=== PATIENT | female | born 1995 | race African-American/Black ===

== ENCOUNTER 2018-06-08 16:35 | Emergency (ER) | payer OTHER ==
[~2018-06-08] VITALS: Ht 160 cm; Wt 50.9 kg
[2018-06-08] MEDS ORDERED: BACTRIM DS 8001 TAB PO (19:25)
[2018-06-08] MEDS ORDERED: NORCO 325 MG-51 TAB PO (19:25)
[2018-06-08 19:50] VITALS: BP 126/84; PULSE 104; TEMP 99.5
== END 2018-06-08 19:50 | disposition home or self-care (01) ==
LOC: COL.ER 16:35
DX: L05.01 Pilonidal cyst with abscess (principal); F17.210 Nicotine dependence, cigarettes, uncomplicated

== ENCOUNTER 2018-06-24 17:27 | Emergency (ER) | payer OTHER ==
[~2018-06-24] VITALS: Ht 162.6 cm; Wt 50.9 kg
[~2018-06-24 17:27] MED LIST: BACTRIM DS 8001 TAB PO; NORCO 325 MG-51 TAB PO
[2018-06-24 20:00] VITALS: BP 107/64; PULSE 85; TEMP 97.7
== END 2018-06-24 20:00 | disposition home or self-care (01) ==
LOC: COL.ER 17:27
DX: J06.9 Acute upper respiratory infection, unspecified (principal); R53.81 Other malaise; R53.83 Other fatigue; F17.210 Nicotine dependence, cigarettes, uncomplicated

== ENCOUNTER 2019-01-30 17:21 | Emergency (ER) | payer OTHER ==
[~2019-01-30] VITALS: Ht 152.4 cm; Wt 50.9 kg
[2019-01-30 17:44] VITALS: BP 107/58; TEMP 98
[2019-01-30 18:35] VITALS: PULSE 75
== END 2019-01-30 17:52 | disposition home or self-care (01) ==
LOC: COL.ER 17:21
DX: Z32.01 Encounter for pregnancy test, result positive (principal)

== ENCOUNTER 2019-02-09 11:41 | Emergency (ER) | payer OTHER ==
[~2019-02-09] VITALS: Ht 162.6 cm; Wt 50.9 kg
[2019-02-09 11:43] VITALS: BP 97/64; TEMP 98
[2019-02-09] MEDS ORDERED: CEPHALEXIN500 M1 PO (12:17)
[2019-02-09 13:00] VITALS: PULSE 66
== END 2019-02-09 13:00 | disposition home or self-care (01) ==
LOC: COL.ER 11:41
DX: S63.281A Dislocation of proximal interphalangeal joint of left index finger, initial encounter (principal); S61.211A Laceration without foreign body of left index finger without damage to nail, initial encounter; Y04.8XXA Assault by other bodily force, initial encounter; Y92.009 Unspecified place in unspecified non-institutional (private) residence as the place of occurrence of the external cause; Y07.01 Husband, perpetrator of maltreatment and neglect

== ENCOUNTER 2022-03-19 15:32 | Emergency (ER) | payer OTHER ==
[~2022-03-19] VITALS: Ht 162.6 cm; Wt 59.1 kg
[~2022-03-19 15:32] MED LIST changes: +CEPHALEXIN500 M1 PO
[2022-03-19 15:44] VITALS: TEMP 98
[2022-03-19] MEDS ORDERED: DOXYCYCLINE HY100 MG PO (16:09)
[2022-03-19 18:46] VITALS: BP 110/68; PULSE 94
== END 2022-03-19 18:51 | disposition home or self-care (01) ==
LOC: COL.ER 15:32
DX: L02.31 Cutaneous abscess of buttock (principal); Z28.310 Unvaccinated for COVID-19